=== PATIENT | male | born 1995 | race Caucasian/White ===

== ENCOUNTER 2017-10-13 19:56 | Emergency (ER) | payer OTHER, SELFPAY ==
[2017-10-13 19:57] VITALS: BP 151/111; PULSE 91; RESP 16; TEMP 36.7; O2SAT 98; BMI 19.1
--- NOTE | 2017-10-13 20:29 | US_ITS ---
STUDY: SCROTUM ULTRASOUND REASON FOR EXAM: Male, 22 years old. Acute tightness/pain of left testicle TECHNIQUE: Ultrasound evaluation of the scrotum was performed with color Doppler and static valles-scale imaging. COMPARISON: None. FINDINGS: RIGHT TESTICLE INTRATESTICULAR: There is a normal size of the right testicle. The right testicle measures 4.6 x 2.7 x 2.6 cm. There is a homogenous echotexture. There is normal arterial and normal venous vascularity. There is no demonstrated right testicular mass or cyst. EXTRATESTICULAR: The epididymis is normal in size. There is normal vascularity of the epididymis. There is no demonstrated epididymal cystic structure. There is a small hydrocele. There is no demonstrated varicocele. There is no demonstrated extratesticular mass or cyst. LEFT TESTICLE INTRATESTICULAR: There is a normal size of the left testicle. The left testicle measures 4.3 x 2.7 x 3.1 cm. There is a homogenous echotexture. There is normal arterial and normal venous vascularity. There is no demonstrated left testicular mass or cyst. EXTRATESTICULAR: The epididymis is normal in size. There is normal vascularity of the epididymis. There is no demonstrated epididymal cystic structure. There is a small hydrocele. There is no demonstrated varicocele. There is no demonstrated extratesticular mass or cyst. US/Testicular with Arterial Flow IMPRESSION: Small bilateral hydroceles. Electronically Signed: Dunia Curry MD at 22:02 EST Tel , Service support ,
--- NOTE | 2017-10-13 21:00 | NURSING ---
SPOKE WITH PATIENT EXTENSIVELY ABOUT COURSE OF TREATMENT. THIS RN HIGHLY RECOMMENDED PT FOLLOWING DOCTORS ORDERS/RECOMMENDATIONS. PT AGREED TO START WITH ULTRASOUND BUT STILL WANTS TO HOLD OFF WITH BLOOD WORK AND DOES NOT WANT ANY MEDICATION AT THIS TIME. WILL CONTINUE TO MONITOR. NOTIFIED.
[2017-10-13 21:30] LABS: Bacteria 0 SEEN /hpf (None Seen)
[2017-10-13 21:33] LABS: Color, Urine Yellow (Yellow); Glucose, Dipstick Normal (Normal); Ketone-Dipstick 50 mg/dl (Negative); Leukocyte Esterase-Dipstick 25 /ul (Negative); Nitrite-Dipstick Negative (Negative); Occult Blood-Urine 25 /ul (Negative); Protein-Dipstick 100 mg/dl (Negative); Urine Clarity Sl. Cloudy (Clear); Urine Urobilinogen 1 mg/dl (Normal)
[2017-10-13 21:35] LABS: Urine Bilirubin Dipstick 1 mg/dL (Negative)
[2017-10-13 21:42] LABS: Red Blood Cells-Urine 0-5 SEEN /hpf (0-5); White Blood Cells 0-5 SEEN /hpf (0-5)
[2017-10-13 21:43] LABS: Amorphous Sediment 1+ URATE; Mucous, Urine 3+ /hpf (<or=2+); Squamous Epithelial Cells - UA 0-5 SEEN /hpf (0-5)
[2017-10-13 22:00] VITALS: RESP 17
--- NOTE | 2017-10-13 22:10 | ED.VISSUMM ---
- ER Visit Summary Date of Service: 10/13/17 Chief Complaint: Acute left testicular pain 1 hour prior to presentation with nausea and vomiting History of Present Illness: The patient is a 22 M presents because of acute left testicular pain that he describes as a tight sensation associated with nausea and vomiting when he was in the shower and attempted to detorsed himself. He reports last evening he had discomfort and his testicle appeared higher on the left. The episode lasted approximately hour last evening. He denies fever, chills or night sweats. He denies dysuria, frequency, urgency or hematuria. He denies any penile lesion or rash or discharge. He denies prior episode of testicular pain. He denies any history of trauma. He states last evening he was doing nothing when this occurred and this evening felt uncomfortable with discomfort and went home to take a shower when he developed severe tightness with nausea and vomiting ?1. Physical Examination: Patient's vital signs are marked for an elevated blood pressure 151/111. He appears pale and uncomfortable.. He is circumcised. There is no penile lesions or discharge. The height of his left testicle is equal to the right. Question of abnormal lie. He has a prominent cremasteric reflex on the right diminished cremasteric reflex on the left. He complains of significant discomfort with palpation of the testicle. There is no swelling, warmth, crepitus or abnormality of the spermatic cord. There is no evidence of hernia. HEENT exam unremarkable. Insert cardiopulmonary exam. There is no inguinal lymphadenopathy. There is no suprapubic discomfort. He has no CVA discomfort and he denies any back or flank pain. Test Results: He would not allow the nurse to establish an IV or obtain blood work. He did give a urine specimen which is nondiagnostic. It is not consistent with a urinary tract infection and not consistent with ureteral obstruction secondary to stone. Because there is a diminished cremasteric reflex and the lie did not appear normal 1 attempt was made to detorsed the left testicle. His discomfort diminished. 5-10 minutes later he was no longer pale. He did allow me to order an ultrasound. The ultrasound revealed normal flow and small bilateral hydroceles. Emergency Department Course and Treatment: IV was ordered with blood work UA and testicular ultrasound. His father informed him not to have any tests done. Explained to him the risk benefits of the test versus not having the tests and specifically Joyce regarding fertility loss of testicle etc. He apparently contacted his father and permitted the ultrasound to be obtained. Treatment Plan: Based on patient's history of acute pain 2 nights in a row abnormal lie with diminished cremasteric reflex on the affected side concern patient torsed and detorsed and will have him seen by urology in the morning. He was informed if pain returns to return to the emergency department immediately. Disposition: Discharge to home in stable and improved condition with urgent urology follow-up in the a.m. Impression: 1. Acute left testicular pain suspect torsion detorsion 2. Bilateral small hydroceles This note was generated with [employer] dictation software. It may contain incorrect words, spelling, and punctuation that were not noted in review of the chart prior to signing ED Disposition - Plan for ED Patient: Disposition: Home or Assisted Living Chief Complaint: Male Pain/Injury Instructions: ED Testclr Tors Detorsed Close FU Referrals: Gee Perkins MD [Primary Care Provider] - Deangelo Corea MD [STAFF PHYSICIAN] - As soon as possible Additional Instructions: Call office at 8 AM to be seen in the morning urgently. Office staff is aware you are calling.
[2017-10-13 22:28] VITALS: RESP 18
== END 2017-10-13 22:29 | disposition home or self-care (01) ==
PROVIDERS: Emergency Provider Emergency Medicine; Family Provider Pediatrics; PCP Pediatrics
DX: N43.3 Hydrocele, unspecified (principal); N50.812 Left testicular pain; R11.2 Nausea with vomiting, unspecified
CPT/HCPCS: 76870; 81001; 93976; 99282; J2405

== ENCOUNTER 2017-11-13 12:48 | Emergency (ER) | payer OTHER, SELFPAY ==
[2017-11-13 12:49] VITALS: BP 144/78; PULSE 80; RESP 18; TEMP 36.6; O2SAT 100; BMI 19.6
[2017-11-13 13:11] VITALS: BP 147/81; PULSE 79; RESP 18; O2SAT 98
--- NOTE | 2017-11-13 13:12 | US_ITS ---
STUDY: SCROTUM ULTRASOUND REASON FOR EXAM: Male, 22 years old. Testicular pain. Check for testicular torsion. TECHNIQUE: Ultrasound evaluation of the scrotum was performed with color Doppler and static valles-scale imaging. COMPARISON: 10/13/2017. FINDINGS: RIGHT TESTICLE INTRATESTICULAR: There is a normal size of the right testicle. The right testicle measures 4.4 x 2.7 x 3.0 cm. There is a homogenous echotexture. There is normal arterial and normal venous vascularity. There is no demonstrated right testicular mass or cyst. EXTRATESTICULAR: The epididymis is normal in size. The epididymis head measures 0.8 x 1.2 x 0.7 cm. There is normal vascularity of the epididymis. There is no demonstrated epididymal cystic structure. There is no demonstrated hydrocele. There is no demonstrated varicocele. There is no demonstrated extratesticular mass or cyst. LEFT TESTICLE INTRATESTICULAR: There is a normal size of the left testicle. The left testicle measures 4.2 x 2.5 x 2.7 cm. There is a homogenous echotexture. There is normal arterial and normal venous vascularity. There is no demonstrated left testicular mass or cyst. EXTRATESTICULAR: The epididymis is normal in size. The epididymis head measures 0.8 x 1.1 x 0.8 cm. There is normal vascularity of the epididymis. There is no demonstrated epididymal cystic structure. There is a small hydrocele noted. There is no demonstrated varicocele. There is no demonstrated extratesticular mass or cyst. US/Testicular with Arterial Flow IMPRESSION: Normal bilateral testicles without ultrasound findings of testicular torsion identified except small left hydrocele is noted. Electronically Signed: Liborio Ramos, at 14:32 EDT Tel , Service support ,
[2017-11-13 15:14] LABS: Bacteria 0 SEEN /hpf (None Seen); Mucous, Urine 0 SEEN /hpf (<or=2+); Red Blood Cells-Urine 0 SEEN /hpf (0-5); White Blood Cells 0 SEEN /hpf (0-5)
[2017-11-13 15:19] LABS: Color, Urine Yellow (Yellow); Glucose, Dipstick Normal (Normal); Ketone-Dipstick Negative (Negative); Leukocyte Esterase-Dipstick Negative /ul (Negative); Nitrite-Dipstick Negative (Negative); Occult Blood-Urine Negative /ul (Negative); Protein-Dipstick Negative (Negative); Urine Bilirubin Dipstick Negative (Negative); Urine Clarity Clear (Clear); Urine Urobilinogen Normal (Normal)
[2017-11-13 15:29] LABS: Squamous Epithelial Cells - UA 0-5 SEEN /hpf (0-5)
[2017-11-13 16:09] VITALS: BP 124/69; PULSE 80; RESP 14; O2SAT 98
[2017-11-13] MEDS: Ibuprofen 200 MG Tablet 800 MG PO (16:09)
--- NOTE | 2017-11-13 16:24 | ED.DCSUM_ITS ---
- ER Visit Summary Date of Service: 11/13/17 Chief Complaint: Testicle pain History of Present Illness: The patient is a 22 M left-sided testicle pain. This started about 6 days ago. He was seen in this emergency department about a month ago. There was concern for torsion. He brought to the ER and he had manual detorsion. He was referred to urology for follow-up. Patient has had continued pain over the past 6 days. No discharge. No dysuria. No bleeding. No other associated symptoms. Physical Examination: Afebrile and vital signs unremarkable. Patient is sitting comfortably. Abdomen soft and nontender. Chaperoned exam shows a normal inspection. No rashes or discharge. Normal testicular lie. Normal cremasteric reflex. No masses palpable. He has diffuse tenderness to palpation the left testicle. No palpable hernia. Test Results: Ultrasound shows no evidence of torsion there is a mild left hydrocele, but otherwise it is unremarkable. Urinalysis unremarkable. Emergency Department Course and Treatment: Patient has orchitis with no evidence of torsion at this time. No sign of infection, epididymitis, etc. He denies any high risk sexual behavior. No other concerning symptoms. Patient will wear supportive underwear. Anti-inflammatories for pain. Follow-up with urology next week as planned. Return for new or worsening issues. Treatment Plan: As above Disposition: Discharged Impression: 1. Left orchitis This note was generated with [employer] dictation software. It may contain incorrect words, spelling, and punctuation that were not noted in review of the chart prior to signing ED Disposition - Plan for ED Patient: Chief Complaint: Male Pain/Injury Referrals: Gee Perkins MD [Primary Care Provider] -
--- NOTE | 2017-11-13 16:24 | ED.DEP ---
ED Disposition - Plan for ED Patient: Chief Complaint: Male Pain/Injury Instructions: ED Orchitis Prescriptions: Ibuprofen [Motrin] 800 mg PO TID PRN PRN #20 tab PRN Reason: Pain Additional Instructions: follow up with your urologist as scheduled
[2017-11-13 16:30] VITALS: BP 124/69; PULSE 80; RESP 14; O2SAT 98
== END 2017-11-13 16:31 | disposition home or self-care (01) ==
LOC: ED 13:18
PROVIDERS: Emergency Provider Emergency Medicine; Family Provider Pediatrics; PCP Pediatrics
DX: N45.2 Orchitis (principal)
CPT/HCPCS: 76870; 81001; 93976; 99282